=== PATIENT | male | born 1935 | race Caucasian/White ===

== ENCOUNTER 2021-11-18 15:57 | Inpatient (IN) | payer MEDICARE ==
[~2021-11-18 15:57] MED LIST: Iopamidol 300 61% 100 ML VIAL FS ONE
[2021-11-18 16:24] LABS: Hemoglobin 11.8 g/dL (13.5-17.5); Mean Corpuscular HGB CONC 33.1 g/dL (32.0-36.0); Mean Corpuscular Volume 96.5 fl (81.2-95.1); Mean Platelet Volume 12.3 fl (7.4-10.4); Platelet Count 371 10x3/uL (150-450); RBC Distribution Width 18.5 % (11.5-14.5); Red Blood Cell (RBC) Count 3.69 10x6/uL (4.32-5.72); White Blood Cell (WBC) Count 14.5 10x3/uL (3.5-10.5)
[2021-11-18 16:25] LABS: MDiff Complete? YES
[2021-11-18 16:37] LABS: ALT (SGPT) 131 U/L (8-55); AST (SGOT) 229 U/L (5-34); Alkaline Phosphatase 80 U/L (40-110); Anion Gap 14 mmol/L (10-20); BUN (Urea Nitrogen) 21 mg/dL (8.4-25.7); Bilirubin, Total 1.9 mg/dL (0.2-1.2); Calc. Creatinine Clearance 0 mL/min (70-130); Carbon Dioxide 27 mmol/L (23-31); Chloride 105 mmol/L (98-107); Globulin 2.7 g/dL (2.4-3.5); Glucose 117 mg/dL (83-110); Lipase 16 U/L (8-78); Potassium 3.8 mmol/L (3.5-5.1); Protein, Total 6.7 g/dL (5.8-8.1); Sodium 142 mmol/L (136-145)
[2021-11-18] MEDS ORDERED: Morphine 4 MG/ML VIAL ONE (16:39)
[2021-11-18] MEDS ORDERED: Ondansetron PF 4 MG/2 ML Vial ONE (16:39)
[2021-11-18 16:46] LABS: Eosinophils 1 % (0-10); Lymphocytes 15 % (21-51); Monocytes 8 % (0-10); Neutrophil 76 % (42-75)
[2021-11-18 16:47] LABS: Anisocytosis SLIGHT = 6-15 cells (100X) (0-5/hpf); Hypochromia SLIGHT = 6-15 cells (100X) (0-5/hpf); Ovalocytes SLIGHT = 2-5 cells (100X) (0-1/hpf); Platelet Morphology Comment Appears Adequate
[2021-11-18] MEDS ORDERED: Senokot S 8.6-50 MG TAB PO PRN (19:04)
[2021-11-18] MEDS ORDERED: Ondansetron PF 4 MG/2 ML Vial IVP PRN (19:04)
[2021-11-18] MEDS ORDERED: Acetaminophen 325 MG TAB PO PRN (19:04)
[2021-11-18] MEDS ORDERED: Piperacillin/Tazobactam 3.375 GM VIAL ONE (19:24)
[2021-11-18] MEDS ORDERED: Morphine 2 MG/ML VIAL SLOW IVP PRN (20:00)
[2021-11-18 22:40] VITALS: BMI 26.3
[2021-11-18] MEDS ORDERED: Famotidine/PF 20 mg/2ml Vial SLOW IVP SCH (22:45)
[2021-11-18] MEDS: Heparin 5,000 UNITS/ML VIAL SC SCH (23:08)
[2021-11-18] MEDS: Sodium Chloride 0.9% 1,000 ML IV SCH (23:08)
[2021-11-18 23:17] LABS: Troponin I 0.043 ng/mL (< 0.028)
[2021-11-18] MEDS: Famotidine/PF 20 mg/2ml Vial SLOW IVP SCH (23:21)
[2021-11-19] MEDS: Piperacillin/Tazobactam 3.375 GM in Sodium Chloride 0.9% 100 ML IVPB SCH ×3 (04:18→21:34)
[2021-11-19 05:10] LABS: Hemoglobin 10.2 g/dL (13.5-17.5); Mean Corpuscular HGB CONC 33.4 g/dL (32.0-36.0); Mean Corpuscular Hemoglobin 32.2 pg (27.0-33.0); Mean Corpuscular Volume 96.2 fl (81.2-95.1); Mean Platelet Volume 11.8 fl (7.4-10.4); Platelet Count 277 10x3/uL (150-450); RBC Distribution Width 18.9 % (11.5-14.5); Red Blood Cell (RBC) Count 3.17 10x6/uL (4.32-5.72); White Blood Cell (WBC) Count 21.3 10x3/uL (3.5-10.5)
[2021-11-19 05:25] LABS: ALT (SGPT) 650 U/L (8-55); AST (SGOT) 586 U/L (5-34); Albumin 3.2 g/dL (3.4-4.8); Alkaline Phosphatase 93 U/L (40-110); Anion Gap 14 mmol/L (10-20); BUN (Urea Nitrogen) 20 mg/dL (8.4-25.7); Bilirubin, Total 3.3 mg/dL (0.2-1.2); Calc. Creatinine Clearance 66 mL/min (70-130); Calcium 8.2 mg/dL (7.8-10.44); Carbon Dioxide 24 mmol/L (23-31); Cardiac Risk 2.7 (Less than 4.5); Chloride 105 mmol/L (98-107); Cholesterol 93 mg/dl (< 200 Desired); Globulin 2.3 g/dL (2.4-3.5); Glucose 108 mg/dL (83-110); HDL Cholesterol 34 mg/dL (>60 Neg Risk); LDL Cholesterol, Calculated 50 mg/dL; Lipase 4 U/L (8-78); Potassium 3.7 mmol/L (3.5-5.1); Protein, Total 5.5 g/dL (5.8-8.1); Sodium 139 mmol/L (136-145); Triglycerides 47 mg/dL (Less than 150)
[2021-11-19 06:28] LABS: MDiff Complete? YES
[2021-11-19 06:32] LABS: Band 8 % (5-11); Lymphocytes 4 % (21-51); Monocytes 6 % (0-10); Neutrophil 80 % (42-75)
[2021-11-19 06:33] LABS: Anisocytosis SLIGHT = 6-15 cells (100X) (0-5/hpf); Ovalocytes SLIGHT = 2-5 cells (100X) (0-1/hpf); Poikilocytosis SLIGHT = 6-15 cells (100X) (0-5/hpf); Schistocytes SLIGHT = 2-5 cells (100X) (0-1/hpf)
[2021-11-19 06:34] LABS: Platelet Morphology Comment Appears Adequate
[2021-11-19] MEDS: Heparin 5,000 UNITS/ML VIAL SC SCH ×3 (09:00→21:35)
[2021-11-19] MEDS: Sodium Chloride 0.9% 1,000 ML IV SCH ×2 (10:27→11:00)
[2021-11-19 13:15] LABS: Hemoglobin 10.4 g/dL (13.5-17.5); MDiff Complete? YES; Mean Corpuscular HGB CONC 34.2 g/dL (32.0-36.0); Mean Corpuscular Hemoglobin 32.4 pg (27.0-33.0); Mean Corpuscular Volume 94.7 fl (81.2-95.1); Mean Platelet Volume 12.3 fl (7.4-10.4); Platelet Count 267 10x3/uL (150-450); RBC Distribution Width 18.5 % (11.5-14.5); Red Blood Cell (RBC) Count 3.21 10x6/uL (4.32-5.72); White Blood Cell (WBC) Count 17.4 10x3/uL (3.5-10.5)
[2021-11-19 13:34] LABS: ALT (SGPT) 537 U/L (8-55); AST (SGOT) 350 U/L (5-34); Albumin 3.2 g/dL (3.4-4.8); Alkaline Phosphatase 86 U/L (40-110); Bilirubin, Direct 1.8 mg/dL (0.1-0.3); Protein, Total 5.6 g/dL (5.8-8.1)
[2021-11-19 13:49] LABS: Anisocytosis SLIGHT = 6-15 cells (100X) (0-5/hpf); Band 2 % (5-11); Lymphocytes 4 % (21-51); Monocytes 3 % (0-10); Neutrophil 91 % (42-75); Platelet Morphology Comment Appears Adequate; Toxic Granulation SLIGHT
[2021-11-19 13:50] LABS: Hypochromia SLIGHT = 6-15 cells (100X) (0-5/hpf); Ovalocytes SLIGHT = 2-5 cells (100X) (0-1/hpf)
[2021-11-19] MEDS: Famotidine/PF 20 mg/2ml Vial SLOW IVP SCH (21:35)
[2021-11-19 23:35] LABS: Bilirubin 1+ (Negative); Blood, Urine Negative (Negative); Clarity Cloudy (Clear); Glucose, Urine (Dipstick) Normal (Negative); Ketone, Urine 5 mg/dL (Negative); Leukocyte Negative (Negative); Nitrite Negative (Negative); Protein, Urine (Dipstick) 30 mg/dl (Neg-Trace)
[2021-11-19 23:59] LABS: Urine Culture Reflex No No
[2021-11-20] LABS: Bacteria/HPF 1+ HPF (None Seen); RBC/HPF 0-3 HPF (0-3); Squamous Epithelial 0-3 HPF (0-3); WBC/HPF 0-3 HPF (0-3)
[2021-11-20] MEDS: Piperacillin/Tazobactam 3.375 GM in Sodium Chloride 0.9% 100 ML IVPB SCH ×3 (04:02→23:32)
[2021-11-20 05:14] LABS: Hemoglobin 10.5 g/dL (13.5-17.5); Mean Corpuscular HGB CONC 34.4 g/dL (32.0-36.0); Mean Corpuscular Hemoglobin 32.5 pg (27.0-33.0); Mean Corpuscular Volume 94.4 fl (81.2-95.1); Platelet Count 239 10x3/uL (150-450); RBC Distribution Width 18.6 % (11.5-14.5); Red Blood Cell (RBC) Count 3.23 10x6/uL (4.32-5.72); White Blood Cell (WBC) Count 10.8 10x3/uL (3.5-10.5)
[2021-11-20 05:22] LABS: INR-International Normal Ratio 1.1; PTT 32.5 sec (22.0-33.0); Prothrombin Time 12.3 sec (9.5-12.1)
[2021-11-20 05:25] LABS: ALT (SGPT) 348 U/L (8-55); AST (SGOT) 156 U/L (5-34); Albumin 3.1 g/dL (3.4-4.8); Alkaline Phosphatase 81 U/L (40-110); Anion Gap 13 mmol/L (10-20); BUN (Urea Nitrogen) 18 mg/dL (8.4-25.7); Calc. Creatinine Clearance 71 mL/min (70-130); Calcium 8.2 mg/dL (7.8-10.44); Carbon Dioxide 22 mmol/L (23-31); Chloride 107 mmol/L (98-107); Globulin 2.4 g/dL (2.4-3.5); Glucose 87 mg/dL (83-110); Potassium 3.2 mmol/L (3.5-5.1); Protein, Total 5.5 g/dL (5.8-8.1); Sodium 139 mmol/L (136-145)
[2021-11-20 05:37] LABS: MDiff Complete? YES
[2021-11-20 05:43] LABS: Band 3 % (5-11); Lymphocytes 4 % (21-51); Monocytes 9 % (0-10); Neutrophil 84 % (42-75)
[2021-11-20 05:45] LABS: Elliptocytes SLIGHT = 2-5 cells (100X) (0-1/hpf); Ovalocytes SLIGHT = 2-5 cells (100X) (0-1/hpf); Platelet Morphology Comment Appears Adequate; Toxic Granulation SLIGHT
[2021-11-20] MEDS ORDERED: Electrolyte Replacement Protocol 1 EACH FS SCH (08:30)
[2021-11-20] MEDS ORDERED: Potassium Chloride 20 MEQ TAB PO SCH (09:00)
[2021-11-20 09:29] LABS: Phosphorus 2.3 mg/dL (2.3-4.7)
[2021-11-20] MEDS ORDERED: Magnesium 2 GM/50 ML(in water) 2 GM in Premix Bag 1 BAG IVPB SCH (10:00)
[2021-11-20] MEDS ORDERED: Pantoprazole 40 MG VIAL IVP SCH (10:15)
[2021-11-20] MEDS: Famotidine/PF 20 mg/2ml Vial SLOW IVP SCH (11:00)
[2021-11-20] MEDS: Sodium Chloride 0.9% 1,000 ML IV SCH ×2 (11:00→11:55)
[2021-11-20] MEDS: Heparin 5,000 UNITS/ML VIAL SC SCH ×3 (11:53→20:48)
[2021-11-20] MEDS: Potassium Chloride 20 MEQ in Premix Bag 1 BAG IVPB SCH ×2 (11:56→19:26)
[2021-11-20] MEDS: hydrALAZINE 20 MG/ML VIAL SLOW IVP PRN (18:09)
[2021-11-20] MEDS ORDERED: Potassium Chloride 20 MEQ in Premix Bag 1 BAG IVPB SCH (18:45)
[2021-11-21] MEDS: Piperacillin/Tazobactam 3.375 GM in Sodium Chloride 0.9% 100 ML IVPB SCH ×4 (01:07→20:18)
[2021-11-21] MEDS: Sodium Chloride 0.9% 1,000 ML IV SCH ×2 (04:39→15:34)
[2021-11-21 05:05] LABS: Hemoglobin 10.1 g/dL (13.5-17.5); Mean Corpuscular HGB CONC 34.5 g/dL (32.0-36.0); Mean Corpuscular Hemoglobin 32.3 pg (27.0-33.0); Mean Corpuscular Volume 93.6 fl (81.2-95.1); Mean Platelet Volume 12.3 fl (7.4-10.4); Platelet Count 198 10x3/uL (150-450); RBC Distribution Width 18.4 % (11.5-14.5); Red Blood Cell (RBC) Count 3.13 10x6/uL (4.32-5.72); White Blood Cell (WBC) Count 6.7 10x3/uL (3.5-10.5)
[2021-11-21 05:11] LABS: ALT (SGPT) 209 U/L (8-55); AST (SGOT) 58 U/L (5-34); Albumin 3.1 g/dL (3.4-4.8); Alkaline Phosphatase 73 U/L (40-110); Anion Gap 13 mmol/L (10-20); BUN (Urea Nitrogen) 9 mg/dL (8.4-25.7); Bilirubin, Total 1.6 mg/dL (0.2-1.2); Calc. Creatinine Clearance 76 mL/min (70-130); Calcium 8.3 mg/dL (7.8-10.44); Carbon Dioxide 22 mmol/L (23-31); Chloride 108 mmol/L (98-107); Globulin 2.5 g/dL (2.4-3.5); Glucose 100 mg/dL (83-110); Magnesium 1.9 mg/dL (1.6-2.6); Potassium 3.5 mmol/L (3.5-5.1); Protein, Total 5.6 g/dL (5.8-8.1); Sodium 139 mmol/L (136-145)
[2021-11-21 06:41] LABS: MDiff Complete? YES
[2021-11-21 06:44] LABS: Lymphocytes 2 % (21-51); Monocytes 8 % (0-10); Neutrophil 89 % (42-75); Reactive Lymphocytes 1 % (0-10)
[2021-11-21 06:45] LABS: Elliptocytes MODERATE= 6-15 cells (100X) (0-1/hpf); Ovalocytes SLIGHT = 2-5 cells (100X) (0-1/hpf)
[2021-11-21 06:46] LABS: Large Platelets SLIGHT; Platelet Morphology Comment Appears Adequate; Toxic Granulation SLIGHT
[2021-11-21] MEDS ORDERED: Magnesium 2 GM/50 ML(in water) 2 GM in Premix Bag 1 BAG IVPB SCH (09:00)
[2021-11-21] MEDS ORDERED: Magnesium 2 GM/50 ML BAG (IN WATER) ONE (09:04)
[2021-11-21] MEDS: hydrALAZINE 20 MG/ML VIAL SLOW IVP PRN ×2 (09:05→15:31)
[2021-11-21] MEDS: Pantoprazole 40 MG VIAL IVP SCH (09:06)
[2021-11-21] MEDS: Heparin 5,000 UNITS/ML VIAL SC SCH ×3 (09:11→20:18)
[2021-11-21] MEDS: Potassium Chloride 20 MEQ in Premix Bag 1 BAG IVPB SCH ×3 (17:48→20:41)
[2021-11-21] MEDS ORDERED: Potassium Chloride 20 MEQ in Premix Bag 1 BAG IVPB SCH (20:00)
[2021-11-22] MEDS: Piperacillin/Tazobactam 3.375 GM in Sodium Chloride 0.9% 100 ML IVPB SCH ×2 (04:25→12:21)
[2021-11-22] MEDS: hydrALAZINE 20 MG/ML VIAL SLOW IVP PRN ×2 (04:35→12:11)
[2021-11-22 04:40] LABS: Hemoglobin 10.5 g/dL (13.5-17.5); Mean Corpuscular HGB CONC 34.3 g/dL (32.0-36.0); Mean Corpuscular Hemoglobin 31.9 pg (27.0-33.0); Mean Platelet Volume 11.8 fl (7.4-10.4); Platelet Count 212 10x3/uL (150-450); RBC Distribution Width 18.2 % (11.5-14.5); Red Blood Cell (RBC) Count 3.29 10x6/uL (4.32-5.72); White Blood Cell (WBC) Count 5.3 10x3/uL (3.5-10.5)
[2021-11-22 04:54] LABS: MDiff Complete? YES
[2021-11-22 04:59] LABS: Band 1 % (5-11); Lymphocytes 10 % (21-51); Monocytes 6 % (0-10); Neutrophil 83 % (42-75)
[2021-11-22 05:00] LABS: Elliptocytes MODERATE= 6-15 cells (100X) (0-1/hpf); Platelet Morphology Comment Appears Adequate
[2021-11-22 05:03] LABS: ALT (SGPT) 145 U/L (8-55); AST (SGOT) 31 U/L (5-34); Albumin 3.1 g/dL (3.4-4.8); Alkaline Phosphatase 78 U/L (40-110); Anion Gap 12 mmol/L (10-20); BUN (Urea Nitrogen) 9 mg/dL (8.4-25.7); Bilirubin, Total 1.4 mg/dL (0.2-1.2); Calc. Creatinine Clearance 75 mL/min (70-130); Calcium 8.4 mg/dL (7.8-10.44); Carbon Dioxide 23 mmol/L (23-31); Chloride 107 mmol/L (98-107); Glucose 96 mg/dL (83-110); Magnesium 2.1 mg/dL (1.6-2.6); Potassium 3.5 mmol/L (3.5-5.1); Protein, Total 6.1 g/dL (5.8-8.1); Sodium 138 mmol/L (136-145)
[2021-11-22] MEDS ORDERED: Potassium Chloride 20 MEQ TAB PO SCH (09:00)
[2021-11-22] MEDS ORDERED: Lisinopril 10 MG TAB PO SCH ×2 (09:00→21:00)
[2021-11-22] MEDS: Pantoprazole 40 MG VIAL IVP SCH (10:14)
[2021-11-22] MEDS: Heparin 5,000 UNITS/ML VIAL SC SCH (12:21)
[2021-11-22] MEDS ORDERED: Amlodipine 10 MG TAB PO SCH (12:45)
[2021-11-22] MEDS ORDERED: Amlodipine 5 MG TAB PO SCH (12:52)
[2021-11-22 14:28] LABS: Potassium 3.7 mmol/L (3.5-5.1)
[2021-11-22 15:53] VITALS: BP 153/66; TEMP 98.1
== END 2021-11-22 15:53 | disposition home or self-care (01) | DRG 391 ==
LOC: CSHERS 15:57 → CSHTELE 22:35
PROVIDERS: ADMIT Internal Medicine; ATTEND Internal Medicine
DX: R10.9 Unspecified abdominal pain (principal); K83.1 Obstruction of bile duct; K86.2 Cyst of pancreas; R79.89 Other specified abnormal findings of blood chemistry; K81.9 Cholecystitis, unspecified; K83.9 Disease of biliary tract, unspecified; I77.811 Abdominal aortic ectasia; E78.5 Hyperlipidemia, unspecified; I25.10 Atherosclerotic heart disease of native coronary artery without angina pectoris; D72.829 Elevated white blood cell count, unspecified; R74.01 Elevation of levels of liver transaminase levels; G47.30 Sleep apnea, unspecified; K82.8 Other specified diseases of gallbladder; M19.90 Unspecified osteoarthritis, unspecified site; I48.0 Paroxysmal atrial fibrillation; E87.6 Hypokalemia; I16.0 Hypertensive urgency; I10 Essential (primary) hypertension; Z20.822 Contact with and (suspected) exposure to COVID-19; Z79.899 Other long term (current) drug therapy; Z79.01 Long term (current) use of anticoagulants; Z99.81 Dependence on supplemental oxygen; Z95.1 Presence of aortocoronary bypass graft; Z95.0 Presence of cardiac pacemaker
CPT/HCPCS: 36415; 71045; 74177; 74181; 76705; 80053; 80061; 81001; 83690; 83735; 84100; 84484; 85025; 85610; 85730; 87086; 93005; 94760; 96365; 96375; C9113; J0360; J1644; J2270; J2405; J2543; J3475; J3480; J3490; J7050; Q9967; S0028; U0003; U0005

== ENCOUNTER 2022-05-01 11:47 | Emergency (ER) | payer MEDICARE ==
[2022-05-01 12:45] LABS: ALT (SGPT) 20 U/L (8-55); AST (SGOT) 37 U/L (5-34); Alkaline Phosphatase 60 U/L (40-110); Anion Gap 13 mmol/L (10-20); BUN (Urea Nitrogen) 35 mg/dL (8.4-25.7); Bilirubin, Total 1.2 mg/dL (0.2-1.2); Calc. Creatinine Clearance 0 mL/min (70-130); Calcium 8.9 mg/dL (7.8-10.44); Carbon Dioxide 25 mmol/L (23-31); Chloride 104 mmol/L (98-107); Estimated GFR 78; Globulin 2.8 g/dL (2.4-3.5); Glucose 112 mg/dL (83-110); Lipase 47 U/L (8-78); Potassium 4.5 mmol/L (3.5-5.1); Protein, Total 6.8 g/dL (5.8-8.1); Sodium 137 mmol/L (136-145)
[2022-05-01 12:47] LABS: #Basophils 0.1 10x3/uL (0.0-0.2); #Monocytes 0.7 10x3/uL (0.0-1.1); #Neutrophils 9.3 10x3/uL (1.5-8.4); %Basophils 0.9 % (0.0-2.0); %Eosinophils 0.1 % (0.0-6.0); %Lymphocytes 3.7 % (18.0-47.0); %Monocytes 6.1 % (0.0-10.0); %Neutrophils 84.7 % (40.0-75.0); Hemoglobin 10.8 g/dL (13.5-17.5); Mean Corpuscular Hemoglobin 32.4 pg (27.0-33.0); Mean Corpuscular Volume 98.2 fl (81.2-95.1); Mean Platelet Volume 13.1 fl (7.4-10.4); Platelet Count 297 10x3/uL (150-450); RBC Distribution Width 20.1 % (11.5-14.5); Red Blood Cell (RBC) Count 3.33 10x6/uL (4.32-5.72)
[2022-05-01 13:16] LABS: Anisocytosis SLIGHT = 6-15 cells (100X) (0-5/hpf); Elliptocytes MODERATE= 6-15 cells (100X) (0-1/hpf); Ovalocytes MODERATE= 6-15 cells (100X) (0-1/hpf); Poikilocytosis SLIGHT = 6-15 cells (100X) (0-5/hpf)
[2022-05-01 13:18] LABS: Helmet Cells SLIGHT = 2-5 cells (100X) (0-1/hpf); Schistocytes SLIGHT = 2-5 cells (100X) (0-1/hpf)
[2022-05-01 13:21] LABS: Large Platelets SLIGHT; Platelet Morphology Comment Appears Adequate
== END 2022-05-01 16:55 | disposition home or self-care (01) ==
LOC: CSHERS 11:47
DX: R10.13 Epigastric pain (principal); I10 Essential (primary) hypertension; I25.10 Atherosclerotic heart disease of native coronary artery without angina pectoris
CPT/HCPCS: 36415; 71045; 74177; 80053; 83690; 84484; 85025; 93005; 94760

== ENCOUNTER 2022-07-02 15:15 | Inpatient (IN) | payer MEDICARE ==
[2022-07-02 16:05] LABS: Hemoglobin 8.3 g/dL (13.5-17.5); Mean Corpuscular HGB CONC 32.7 g/dL (32.0-36.0); Mean Corpuscular Hemoglobin 31.3 pg (27.0-33.0); Mean Corpuscular Volume 95.8 fl (81.2-95.1); Platelet Count 190 10x3/uL (150-450); RBC Distribution Width 19.9 % (11.5-14.5); Red Blood Cell (RBC) Count 2.65 10x6/uL (4.32-5.72)
[2022-07-02 16:06] LABS: MDiff Complete? YES; Manual Diff?? YES
[2022-07-02 16:07] LABS: ALT (SGPT) 13 U/L (8-55); AST (SGOT) 32 U/L (5-34); Albumin 3.4 g/dL (3.4-4.8); Alkaline Phosphatase 51 U/L (40-110); Anion Gap 11 mmol/L (10-20); BUN (Urea Nitrogen) 39 mg/dL (8.4-25.7); Bilirubin, Total 0.5 mg/dL (0.2-1.2); Calc. Creatinine Clearance 0 mL/min (70-130); Calcium 8.7 mg/dL (7.8-10.44); Carbon Dioxide 28 mmol/L (23-31); Chloride 107 mmol/L (98-107); Estimated GFR 83; Globulin 2.6 g/dL (2.4-3.5); Glucose 129 mg/dL (83-110); Sodium 142 mmol/L (136-145)
[2022-07-02 16:42] LABS: CKMB 20.2 ng/mL (0-6.6)
[2022-07-02] MEDS ORDERED: Aspirin Chewable 81 MG TAB ONE (17:12)
[2022-07-02] MEDS ORDERED: Fentanyl 100 MCG/2 ML VIAL ONE (17:13)
[2022-07-02 17:26] LABS: Band 2 % (5-11); Lymphocytes 6 % (21-51); Monocytes 1 % (0-10); Neutrophil 89 % (42-75); Reactive Lymphocytes 2 % (0-10)
[2022-07-02 17:27] LABS: Anisocytosis SLIGHT = 6-15 cells (100X) (0-5/hpf); Platelet Morphology Comment Appears Adequate
[2022-07-02 17:28] LABS: Hypochromia MODERATE=16-30 cells (100X) (0-5/hpf); Macrocytosis SLIGHT = 6-15 cells (100X) (0-5/hpf); Microcytosis SLIGHT = 6-15 cells (100X) (0-5/hpf)
[2022-07-02 17:29] LABS: Basophilic Stippling SLIGHT = 1-2 cells (100X) (None Seen); Elliptocytes MODERATE= 6-15 cells (100X) (0-1/hpf); Schistocytes SLIGHT = 2-5 cells (100X) (0-1/hpf); Target Cells SLIGHT = 2-5 cells (100X) (0-1/hpf)
[2022-07-02 19:33] LABS: Troponin I 2.871 ng/mL (< 0.028)
[2022-07-02 21:25] LABS: SARS-CoV-2 NAA Rapid Test Not Detected (NotDetected)
[2022-07-02] MEDS ORDERED: Nitroglycerin 0.4 MG TAB (25 Tab Bottle) SL PRN (21:38)
[2022-07-02 22:09] LABS: Magnesium 2.1 mg/dL (1.6-2.6)
[2022-07-02 22:19] LABS: Troponin I 4.992 ng/mL (< 0.028)
[2022-07-03 04:37] LABS: Iron 70 ug/dL (65-175); Iron Binding Capacity, Total 198 mcg/dL (261-462)
[2022-07-03 04:53] LABS: Ferritin 534.34 ng/mL (22-322)
[2022-07-03] MEDS ORDERED: Ascorbic Acid 500 mg Chewable Tablet PO SCH (09:00)
[2022-07-03 10:05] LABS: Hemoglobin 8.6 g/dL (13.5-17.5)
[2022-07-03] MEDS ORDERED: Multivitamin W/ Minerals 1 TAB ONE (11:09)
[2022-07-03] MEDS ORDERED: Aspirin Chewable 81 MG TAB ONE (11:09)
[2022-07-03] MEDS ORDERED: Folic Acid 1 MG TAB ONE (11:10)
[2022-07-03] MEDS: Aspirin 81 mg Enteric Coated Tablet PO SCH (11:20)
[2022-07-03] MEDS: Multivitamin W/ Minerals 1 TAB PO SCH (11:21)
[2022-07-03] MEDS: Folic Acid 1 MG TAB PO SCH (11:21)
[2022-07-03] MEDS: Furosemide 20 MG TAB PO SCH (11:21)
[2022-07-03 13:25] VITALS: BMI 22.5
[2022-07-03] MEDS: Thiamine 100 MG TAB PO SCH (14:23)
[2022-07-03] MEDS: Cholecalciferol 1,000 UNITS (25 MCG) TAB PO SCH (14:24)
[2022-07-03 14:42] LABS: CKMB 17.5 ng/mL (0-6.6)
[2022-07-03 17:50] LABS: Hemoglobin 8.3 g/dL (13.5-17.5)
[2022-07-03 18:37] LABS: CKMB 11.5 ng/mL (0-6.6)
[2022-07-03] MEDS ORDERED: Communication Order-Pharmacy FS SCH (18:45)
[2022-07-03] MEDS: Atorvastatin Calcium 20 MG TAB PO SCH (20:11)
[2022-07-04 05:49] LABS: #Monocytes 0.1 10x3/uL (0.0-1.1); #Neutrophils 2.4 10x3/uL (1.5-8.4); %Basophils 0.9 % (0.0-2.0); %Lymphocytes 22.8 % (18.0-47.0); %Monocytes 3.5 % (0.0-10.0); %Neutrophils 69.9 % (40.0-75.0); Hemoglobin 8.3 g/dL (13.5-17.5); Mean Corpuscular HGB CONC 33.2 g/dL (32.0-36.0); Mean Corpuscular Hemoglobin 31.1 pg (27.0-33.0); Mean Corpuscular Volume 93.6 fl (81.2-95.1); Platelet Count 176 10x3/uL (150-450); RBC Distribution Width 20.2 % (11.5-14.5); Red Blood Cell (RBC) Count 2.67 10x6/uL (4.32-5.72); White Blood Cell (WBC) Count 3.5 10x3/uL (3.5-10.5)
[2022-07-04] MEDS: Sodium Chloride 0.9% 1,000 ML IV SCH ×3 (06:13→16:23)
[2022-07-04 06:47] LABS: Anisocytosis SLIGHT = 6-15 cells (100X) (0-5/hpf)
[2022-07-04 06:53] LABS: Hypochromia SLIGHT = 6-15 cells (100X) (0-5/hpf); Macrocytosis SLIGHT = 6-15 cells (100X) (0-5/hpf); Polychromasia SLIGHT = 2-3 cells (100X) (0-2/hpf)
[2022-07-04 06:55] LABS: Elliptocytes MODERATE= 6-15 cells (100X) (0-1/hpf); Schistocytes SLIGHT = 2-5 cells (100X) (0-1/hpf)
[2022-07-04 06:57] LABS: Platelet Morphology Comment Appears Decreased
[2022-07-04 06:59] LABS: Reflex for Review?? YES
[2022-07-04] MEDS ORDERED: Iopamidol 300 61% 100 ML VIAL FS ONE (08:46)
[2022-07-04] MEDS: Multivitamin W/ Minerals 1 TAB PO SCH (09:14)
[2022-07-04] MEDS: Cholecalciferol 1,000 UNITS (25 MCG) TAB PO SCH (09:15)
[2022-07-04] MEDS: Ferrous Sulfate 325 MG TAB PO SCH (09:15)
[2022-07-04] MEDS: Aspirin 81 mg Enteric Coated Tablet PO SCH (09:18)
[2022-07-04] MEDS: Furosemide 20 MG TAB PO SCH (09:19)
[2022-07-04] MEDS: Thiamine 100 MG TAB PO SCH (09:19)
[2022-07-04] MEDS: Folic Acid 1 MG TAB PO SCH (09:19)
[2022-07-04] MEDS: Cyanocobalamin (Vitamin B-12) 1,000 MCG TAB PO SCH (09:19)
[2022-07-04] MEDS: Ascorbic Acid 500 mg Chewable Tablet PO SCH (09:20)
[2022-07-04] MEDS ORDERED: Lidocaine 1% (PF) 30 ML VIAL ONE (12:24)
[2022-07-04] MEDS ORDERED: Nitroglycerin 50 MG/250 ML BOT 250 ML ONE (12:24)
[2022-07-04] MEDS ORDERED: Heparin 10,000 UNITS/ 10 ML VIAL ONE ×2 (12:25→14:11)
[2022-07-04] MEDS ORDERED: Adenosine 6 MG/2 ML VIAL ONE (12:27)
[2022-07-04] MEDS ORDERED: Sodium Chloride 0.9% 1,000 ML ONE (12:27)
[2022-07-04] MEDS ORDERED: Fentanyl 100 MCG/2 ML VIAL ONE (12:28)
[2022-07-04] MEDS ORDERED: Midazolam HCl 2 mg/2 ml Vial ONE (12:28)
[2022-07-04] MEDS ORDERED: TICAGRELOR 90 MG TABLET ONE (13:52)
[2022-07-04] MEDS ORDERED: Protamine Sulfate 50 MG/5 ML VIAL ONE (14:20)
[2022-07-04] MEDS: TICAGRELOR 90 MG TABLET PO SCH (22:25)
[2022-07-04] MEDS: Atorvastatin Calcium 20 MG TAB PO SCH (22:26)
[2022-07-05] MEDS: Sodium Chloride 0.9% 1,000 ML IV SCH ×3 (04:09→22:56)
[2022-07-05 05:38] LABS: #Monocytes 0.1 10x3/uL (0.0-1.1); #Neutrophils 3.1 10x3/uL (1.5-8.4); %Basophils 0.8 % (0.0-2.0); %Lymphocytes 12.5 % (18.0-47.0); %Monocytes 3.4 % (0.0-10.0); %Neutrophils 79.4 % (40.0-75.0); Hemoglobin 7.7 g/dL (13.5-17.5); Mean Corpuscular Hemoglobin 30.9 pg (27.0-33.0); Mean Corpuscular Volume 93.6 fl (81.2-95.1); Platelet Count 147 10x3/uL (150-450); Red Blood Cell (RBC) Count 2.49 10x6/uL (4.32-5.72); White Blood Cell (WBC) Count 3.9 10x3/uL (3.5-10.5)
[2022-07-05 05:45] LABS: ALT (SGPT) 12 U/L (8-55); AST (SGOT) 22 U/L (5-34); Albumin 2.9 g/dL (3.4-4.8); Alkaline Phosphatase 47 U/L (40-110); Anion Gap 11 mmol/L (10-20); BUN (Urea Nitrogen) 16 mg/dL (8.4-25.7); Bilirubin, Total 0.9 mg/dL (0.2-1.2); Calc. Creatinine Clearance 74 mL/min (70-130); Calcium 8.4 mg/dL (7.8-10.44); Carbon Dioxide 24 mmol/L (23-31); Chloride 108 mmol/L (98-107); Cholesterol 96 mg/dl (< 200 Desired); Estimated GFR 88; Globulin 2.5 g/dL (2.4-3.5); Glucose 92 mg/dL (83-110); HDL Cholesterol 24 mg/dL (>60 Neg Risk); LDL Cholesterol, Calculated 51 mg/dL; Potassium 3.5 mmol/L (3.5-5.1); Protein, Total 5.4 g/dL (5.8-8.1); Sodium 139 mmol/L (136-145); Triglycerides 105 mg/dL (Less than 150)
[2022-07-05 05:53] LABS: Free T4 (Free Thyroxine) 1.15 ng/dL (0.70-1.48)
[2022-07-05] MEDS: Ascorbic Acid 500 mg Chewable Tablet PO SCH (08:52)
[2022-07-05] MEDS: Aspirin Chewable 81 MG TAB PO SCH (08:52)
[2022-07-05] MEDS: Cyanocobalamin (Vitamin B-12) 1,000 MCG TAB PO SCH (08:52)
[2022-07-05] MEDS: Furosemide 20 MG TAB PO SCH (08:52)
[2022-07-05] MEDS: Cholecalciferol 1,000 UNITS (25 MCG) TAB PO SCH (08:52)
[2022-07-05] MEDS: Ferrous Sulfate 325 MG TAB PO SCH (08:53)
[2022-07-05] MEDS: Thiamine 100 MG TAB PO SCH (08:53)
[2022-07-05] MEDS: Folic Acid 1 MG TAB PO SCH (08:53)
[2022-07-05] MEDS: Multivitamin W/ Minerals 1 TAB PO SCH (08:53)
[2022-07-05] MEDS: TICAGRELOR 90 MG TABLET PO SCH ×2 (08:53→21:55)
[2022-07-05] MEDS: Escitalopram Oxalate 10 mg Tablet PO SCH (08:53)
[2022-07-05] MEDS: Atorvastatin Calcium 40 MG TAB PO SCH (21:54)
[2022-07-06] MEDS: Sodium Chloride 0.9% 1,000 ML IV SCH ×2 (00:36→16:02)
[2022-07-06 04:38] LABS: Anion Gap 9 mmol/L (10-20); BUN (Urea Nitrogen) 17 mg/dL (8.4-25.7); Calc. Creatinine Clearance 72 mL/min (70-130); Calcium 8.3 mg/dL (7.8-10.44); Carbon Dioxide 23 mmol/L (23-31); Chloride 110 mmol/L (98-107); Estimated GFR 87; Glucose 90 mg/dL (83-110); Potassium 3.4 mmol/L (3.5-5.1); Sodium 139 mmol/L (136-145)
[2022-07-06 04:55] LABS: #Monocytes 0.1 10x3/uL (0.0-1.1); #Neutrophils 2.7 10x3/uL (1.5-8.4); %Basophils 0.6 % (0.0-2.0); %Lymphocytes 13.2 % (18.0-47.0); %Monocytes 2.9 % (0.0-10.0); %Neutrophils 78.6 % (40.0-75.0); Hemoglobin 7.7 g/dL (13.5-17.5); Mean Corpuscular HGB CONC 33.8 g/dL (32.0-36.0); Mean Corpuscular Hemoglobin 31.4 pg (27.0-33.0); Mean Corpuscular Volume 93.1 fl (81.2-95.1); Platelet Count 192 10x3/uL (150-450); RBC Distribution Width 20.5 % (11.5-14.5); Red Blood Cell (RBC) Count 2.45 10x6/uL (4.32-5.72); White Blood Cell (WBC) Count 3.4 10x3/uL (3.5-10.5)
[2022-07-06 06:40] LABS: Anisocytosis MARKED = >30 cells (100X) (0-5/hpf)
[2022-07-06 06:41] LABS: Elliptocytes MODERATE= 6-15 cells (100X) (0-1/hpf); Hypochromia SLIGHT = 6-15 cells (100X) (0-5/hpf); Microcytosis SLIGHT = 6-15 cells (100X) (0-5/hpf); Schistocytes SLIGHT = 2-5 cells (100X) (0-1/hpf)
[2022-07-06 06:42] LABS: Platelet Morphology Comment Appears Adequate
[2022-07-06] MEDS: Thiamine 100 MG TAB PO SCH (08:42)
[2022-07-06] MEDS: Multivitamin W/ Minerals 1 TAB PO SCH (08:42)
[2022-07-06] MEDS: Aspirin Chewable 81 MG TAB PO SCH (08:42)
[2022-07-06] MEDS: Folic Acid 1 MG TAB PO SCH (08:42)
[2022-07-06] MEDS: Cholecalciferol 1,000 UNITS (25 MCG) TAB PO SCH (08:42)
[2022-07-06] MEDS: Ascorbic Acid 500 mg Chewable Tablet PO SCH (08:43)
[2022-07-06] MEDS: Furosemide 20 MG TAB PO SCH (08:43)
[2022-07-06] MEDS: Escitalopram Oxalate 10 mg Tablet PO SCH (08:43)
[2022-07-06] MEDS: Cyanocobalamin (Vitamin B-12) 1,000 MCG TAB PO SCH (08:43)
[2022-07-06] MEDS: Ferrous Sulfate 325 MG TAB PO SCH (08:43)
[2022-07-06] MEDS: TICAGRELOR 90 MG TABLET PO SCH ×2 (08:44→20:40)
[2022-07-06] MEDS: Apixaban 5 MG TAB PO SCH (20:39)
[2022-07-06] MEDS: Famotidine 20 MG TAB PO SCH (20:39)
[2022-07-06] MEDS: Atorvastatin Calcium 40 MG TAB PO SCH (20:40)
[2022-07-07] MEDS: Sodium Chloride 0.9% 1,000 ML IV SCH ×3 (00:38→23:53)
[2022-07-07] MEDS: Aspirin Chewable 81 MG TAB PO SCH (09:33)
[2022-07-07] MEDS: Famotidine 20 MG TAB PO SCH ×2 (09:33→20:37)
[2022-07-07] MEDS: Apixaban 5 MG TAB PO SCH ×2 (09:33→20:37)
[2022-07-07] MEDS: Ascorbic Acid 500 mg Chewable Tablet PO SCH (09:33)
[2022-07-07] MEDS: Multivitamin W/ Minerals 1 TAB PO SCH (09:33)
[2022-07-07] MEDS: Ferrous Sulfate 325 MG TAB PO SCH (09:34)
[2022-07-07] MEDS: TICAGRELOR 90 MG TABLET PO SCH ×2 (09:34→20:38)
[2022-07-07] MEDS: Furosemide 20 MG TAB PO SCH (09:34)
[2022-07-07] MEDS: Thiamine 100 MG TAB PO SCH (09:34)
[2022-07-07] MEDS: Folic Acid 1 MG TAB PO SCH (09:34)
[2022-07-07] MEDS: Cyanocobalamin (Vitamin B-12) 1,000 MCG TAB PO SCH (09:34)
[2022-07-07] MEDS: Escitalopram Oxalate 10 mg Tablet PO SCH (09:35)
[2022-07-07] MEDS: Cholecalciferol 1,000 UNITS (25 MCG) TAB PO SCH (09:36)
[2022-07-07] MEDS: Atorvastatin Calcium 40 MG TAB PO SCH (20:37)
[2022-07-08] MEDS: Thiamine 100 MG TAB PO SCH (08:58)
[2022-07-08] MEDS: Furosemide 20 MG TAB PO SCH (08:58)
[2022-07-08] MEDS: Ascorbic Acid 500 mg Chewable Tablet PO SCH (08:59)
[2022-07-08] MEDS: Apixaban 5 MG TAB PO SCH ×2 (08:59→21:17)
[2022-07-08] MEDS: Famotidine 20 MG TAB PO SCH ×2 (08:59→21:17)
[2022-07-08] MEDS: Folic Acid 1 MG TAB PO SCH (09:00)
[2022-07-08] MEDS: TICAGRELOR 90 MG TABLET PO SCH ×2 (09:00→21:17)
[2022-07-08] MEDS: Aspirin Chewable 81 MG TAB PO SCH (09:00)
[2022-07-08] MEDS: Escitalopram Oxalate 10 mg Tablet PO SCH (09:00)
[2022-07-08] MEDS: Ferrous Sulfate 325 MG TAB PO SCH (09:00)
[2022-07-08] MEDS: Cholecalciferol 1,000 UNITS (25 MCG) TAB PO SCH (09:00)
[2022-07-08] MEDS: Multivitamin W/ Minerals 1 TAB PO SCH (09:00)
[2022-07-08] MEDS: Cyanocobalamin (Vitamin B-12) 1,000 MCG TAB PO SCH (09:01)
[2022-07-08] MEDS: Sodium Chloride 0.9% 1,000 ML IV SCH (09:07)
[2022-07-08] MEDS: Atorvastatin Calcium 40 MG TAB PO SCH (21:17)
[2022-07-09 07:03] LABS: Anion Gap 10 mmol/L (10-20); BUN (Urea Nitrogen) 16 mg/dL (8.4-25.7); Calc. Creatinine Clearance 73 mL/min (70-130); Calcium 8.5 mg/dL (7.8-10.44); Carbon Dioxide 25 mmol/L (23-31); Chloride 106 mmol/L (98-107); Estimated GFR 88; Glucose 91 mg/dL (83-110); Potassium 3.3 mmol/L (3.5-5.1); Sodium 138 mmol/L (136-145)
[2022-07-09 07:05] LABS: #Basophils 0.1 10x3/uL (0.0-0.2); #Monocytes 0.1 10x3/uL (0.0-1.1); #Neutrophils 3.9 10x3/uL (1.5-8.4); %Basophils 1.1 % (0.0-2.0); %Lymphocytes 8.6 % (18.0-47.0); %Monocytes 2.8 % (0.0-10.0); Hemoglobin 8.3 g/dL (13.5-17.5); Mean Corpuscular Hemoglobin 31.6 pg (27.0-33.0); Mean Corpuscular Volume 92.8 fl (81.2-95.1); Platelet Count 232 10x3/uL (150-450); RBC Distribution Width 20.8 % (11.5-14.5); Red Blood Cell (RBC) Count 2.63 10x6/uL (4.32-5.72); White Blood Cell (WBC) Count 4.7 10x3/uL (3.5-10.5)
[2022-07-09 07:24] LABS: Anisocytosis SLIGHT = 6-15 cells (100X) (0-5/hpf)
[2022-07-09 07:25] LABS: Ovalocytes MODERATE= 6-15 cells (100X) (0-1/hpf); Schistocytes SLIGHT = 2-5 cells (100X) (0-1/hpf)
[2022-07-09 07:26] LABS: Elliptocytes MODERATE= 6-15 cells (100X) (0-1/hpf); Platelet Morphology Comment Appears Adequate
[2022-07-09] MEDS ORDERED: Potassium Chloride 20 MEQ TAB PO SCH (08:00)
[2022-07-09] MEDS ORDERED: Ferrous Sulfate 325 MG TAB ONE (09:11)
[2022-07-09] MEDS: Thiamine 100 MG TAB PO SCH (09:18)
[2022-07-09] MEDS: Aspirin Chewable 81 MG TAB PO SCH (09:18)
[2022-07-09] MEDS: Furosemide 20 MG TAB PO SCH (09:19)
[2022-07-09] MEDS: Cyanocobalamin (Vitamin B-12) 1,000 MCG TAB PO SCH (09:19)
[2022-07-09] MEDS: Apixaban 5 MG TAB PO SCH (09:19)
[2022-07-09] MEDS: Escitalopram Oxalate 10 mg Tablet PO SCH (09:19)
[2022-07-09] MEDS: Cholecalciferol 1,000 UNITS (25 MCG) TAB PO SCH (09:19)
[2022-07-09] MEDS: Famotidine 20 MG TAB PO SCH (09:19)
[2022-07-09] MEDS: Multivitamin W/ Minerals 1 TAB PO SCH (09:19)
[2022-07-09] MEDS: Folic Acid 1 MG TAB PO SCH (09:19)
[2022-07-09] MEDS: Ascorbic Acid 500 mg Chewable Tablet PO SCH (09:20)
[2022-07-09] MEDS: TICAGRELOR 90 MG TABLET PO SCH (09:20)
[2022-07-09] MEDS: Ferrous Sulfate 325 MG TAB PO SCH (09:20)
[2022-07-09 13:18] VITALS: BP 124/60; TEMP 98
[2022-07-09] MEDS: Fludrocortisone Acetate 0.1 MG TAB PO SCH (13:19)
== END 2022-07-09 15:30 | DRG 247 ==
LOC: CSHERS 15:15 → CSHERHOLD 19:47 → CSHTELE 07-03 13:06
PROVIDERS: ADMIT Family Medicine; ATTEND Family Medicine
PROC: 5A09457 Assistance with Respiratory Ventilation, 24-96 Consecutive Hours, Continuous Positive Airway Pressure (ICD-10-PCS; principal; 2022-07-02)
PROC: 027034Z Dilation of Coronary Artery, One Artery with Drug-eluting Intraluminal Device, Percutaneous Approach (ICD-10-PCS; 2022-07-04)
DX: I21.4 Non-ST elevation (NSTEMI) myocardial infarction (principal); I50.22 Chronic systolic (congestive) heart failure; I25.10 Atherosclerotic heart disease of native coronary artery without angina pectoris; I48.91 Unspecified atrial fibrillation; G47.33 Obstructive sleep apnea (adult) (pediatric); R53.1 Weakness; I49.5 Sick sinus syndrome; E78.5 Hyperlipidemia, unspecified; D63.8 Anemia in other chronic diseases classified elsewhere; R55 Syncope and collapse; I11.0 Hypertensive heart disease with heart failure; Z20.822 Contact with and (suspected) exposure to COVID-19; Z79.01 Long term (current) use of anticoagulants; Z95.1 Presence of aortocoronary bypass graft; Z95.0 Presence of cardiac pacemaker; Z90.49 Acquired absence of other specified parts of digestive tract; Z79.899 Other long term (current) drug therapy
CPT/HCPCS: 36415; 71045; 80048; 80053; 80061; 82274; 82553; 82607; 82728; 83540; 83550; 83735; 84439; 84443; 84481; 84484; 85014; 85018; 85025; 85060; 85347; 92928; 92978; 93005; 93010; 93306; 93459; 94660; 96374; 99152; 99153; C1725; C1753; C1760; C1769; C1874; C9600; J0153; J1644; J1650; J2001; J2250; J2720; J3010; J7050; Q9967; U0002